=== PATIENT | female | born 1990 | race Caucasian/White ===

== ENCOUNTER 2017-10-27 12:41 | Emergency (ER) | payer OTHER ==
[2017-10-27] MEDS ORDERED: NA CHLORIDE 0.9% 1,000 ML ONE (13:44)
[2017-10-27 14:04] LABS: Absolute Monocytes 0.3 K/uL (0.1-1.3); Absolute Neutrophil 4.8 K/uL (1.8-8.0); Basophils % 0.8 % (0-1.3); Eosinophils % 1.3 % (0-4.4); Hematocrit 38.3 % (36.0-45.0); Lymphocytes % 27.2 % (15.3-44.8); MCH 29.3 pg (27.0-35.0); MPV 7.2 fL (7.6-11.3); Monocytes % 4.3 % (3.3-12.3); RBC Red Blood Cell Count 4.51 M/uL (3.86-4.86)
[2017-10-27 14:20] LABS: Urine Blood 2+ (NEG); Urine Glucose NEGATIVE (NEG); Urine Protein NEGATIVE (NEG); Urine Specific Gravity 1.015 (1.005-1.030)
[2017-10-27 14:24] LABS: BUN Blood Urea Nitrogen 10 mg/dL (7-18); Bicarbonate 26 mmol/L (21-32); Glucose Level 114 mg/dL (74-106); Potassium 3.7 mmol/L (3.5-5.1); Sodium Level 141 mmol/L (136-145)
--- NOTE | 2017-10-27 15:12 | EDPHYS ---
Physician Documentation [facility] Name: Merissa Moreira Age: 27 yrs Sex: Female : 1990 Arrival Date: 10/27/2017 Time: 12:45 Bed 19 Private MD: None, None ED Physician Jagdeep Cross HPI: 10/27 15:00 This 27 yrs old Female presents to ER via Ambulatory with complaints of pm1 Vaginal Bleeding. 15:00 The patient presents with vaginal bleeding that is heavy, with clots. Onset: The pm1 symptoms/episode began/occurred 4 day(s) ago. Modifying factors: The symptoms are alleviated by nothing, the symptoms are aggravated by nothing. Associated signs and symptoms: Pertinent negatives:. Severity of symptoms: At their worst the symptoms were moderate, 2 day(s) ago, in the emergency department the symptoms have improved, markedly. The patient has not experienced similar symptoms in the past. Patient with LEEP procedure 12 days ago. Patient with onset 4 days ago of vaginal bleeding that has gotten worse over the past two days. Clots present in bleeding for the past two days. No shortness of breath, chest pain, dizziness. Patient with irregular menses and possibly on her cycle now. 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 - Social history:: Smoking status: Patient/guardian denies using tobacco, Patient/guardian denies using alcohol. - Ebola Screening: : Patient negative for fever greater than or equal to 101.5 degrees Fahrenheit, and additional compatible Ebola Virus Disease symptoms Patient denies exposure to infectious person Patient denies travel to an Ebola-affected area in the 21 days before illness onset. ROS: 15:00 Positive for vaginal bleeding, Negative for urinary symptoms, burning with urination.pm1 15:00 Constitutional: Negative for fever, chills, and weight loss, Eyes: Negative for injury, pain, redness, and discharge, ENT: Negative for injury, pain, and discharge, Neck: Negative for injury, pain, and swelling, Cardiovascular: Negative for chest pain, palpitations, and edema, Respiratory: Negative for shortness of breath, cough, wheezing, and pleuritic chest pain, Abdomen/GI: Negative for abdominal pain, nausea, vomiting, diarrhea, and constipation, Back: Negative for injury and pain, MS/Extremity: Negative for injury and deformity, Skin: Negative for injury, rash, and discoloration, Neuro: Negative for headache, weakness, numbness, tingling, and seizure. Exam: 15:00 Constitutional: This is a well developed, well nourished patient who is awake, alert, pm1 and in no acute distress. Head/Face: Normocephalic, atraumatic. Eyes: Pupils equal round and reactive to light, extra-ocular motions intact. Lids and lashes normal. Conjunctiva and sclera are non-icteric and not injected. Cornea within normal limits. Periorbital areas with no swelling, redness, or edema. Neck: Trachea midline, no thyromegaly or masses palpated, and no cervical lymphadenopathy. Supple, full range of motion without nuchal rigidity, or vertebral point tenderness. No Meningismus. Chest/axilla: Normal chest wall appearance and motion. Nontender with no deformity. No lesions are appreciated. Cardiovascular: Regular rate and rhythm with a normal S1 and S2. No gallops, murmurs, or rubs. Normal PMI, no JVD. No pulse deficits. Respiratory: Lungs have equal breath sounds bilaterally, clear to auscultation and percussion. No rales, rhonchi or wheezes noted. No increased work of breathing, no retractions or nasal flaring. Abdomen/GI: Soft, non-tender, with normal bowel sounds. No distension or tympany. No guarding or rebound. No evidence of tenderness throughout. Back: No spinal tenderness. No costovertebral tenderness. Full range of motion. Skin: Warm, dry with normal turgor. Normal color with no rashes, no lesions, and no evidence of cellulitis. MS/ Extremity: Pulses equal, no cyanosis. Neurovascular intact. Full, normal range of motion. 15:04 : Pelvic Exam: External exam: is normal, Speculum exam: scant bleeding, After blood pm1 clot in vault removed. Scant bleeding present from os, Sports Commentator: DIRECTOR OF EXHIBITS student, Shelly. Vital Signs: 12:56 BP 128 / 83; Pulse 107; Resp 18; Temp 98.5(O); Pulse Ox 100% on R/A; Weight 68.04 kg; hj Height 5 ft. 5 in. (165.10 cm); Pain 1/10; 15:33 BP 133 / 97; Pulse 91; Resp 16; Pulse Ox 100% on R/A; mb3 12:56 Body Mass Index 24.96 (68.04 kg, 165.10 cm) hj MDM: 13:02 Patient medically screened. pm1 15:04 Data reviewed: vital signs. Data interpreted: Pulse oximetry: on room air is 100 %. pm1 Interpretation: normal. Counseling: I had a detailed discussion with the patient and/or guardian regarding: the historical points, exam findings, and any diagnostic results supporting the discharge/admit diagnosis, the need for outpatient follow up, an OB/Gyne specialist, to return to the emergency department if symptoms worsen or persist or if there are any questions or concerns that arise at home. 10/27 13:24 Order name: Basic Metabolic Panel; Complete Time: 14:34 pm10/27 13:24 Order name: CBC with Diff; Complete Time: 14:34 pm10/27 13:24 Order name: Type And Screen; Complete Time: 14:43 pm10/27 14:18 Order name: Urine Dipstick--Ancillary (enter results); Complete Time: 14:34 ag 10/27 14:18 Order name: Urine --Ancillary (enter results); Complete Time: 14:34 ag 10/27 14:44 Order name: ABO/RH no charge; Complete Time: 15:04 EDMS 10/27 13:24 Order name: Urine Test (obtain specimen); Complete Time: 13:56 pm10/27 13:24 Order name: IV Saline Lock; Complete Time: 13:56 pm10/27 13:24 Order name: Labs collected and sent; Complete Time: 13:56 pm10/27 13:24 Order name: NPO; Complete Time: 13:56 pm10/27 13:24 Order name: Urine Dipstick-Ancillary (obtain specimen); Complete Time: 13:56 pm10/27 13:24 Order name: Pelvic Exam Setup; Complete Time: 14:26 pm1 Administered Medications: 13:50 Drug: NS 0.9% 1000 ml Route: IV; Rate: 1000 ml; Site: right antecubital; ae1 15:31 Follow up: Response: No adverse reaction; IV Status: Completed infusion; IV Intake: mb3 1000ml Disposition: 17:36 Co-signature as Attending Physician, Jagdeep Cross MD. rn Disposition: 10/27/17 15:11 Discharged to Home. Impression: Other abnormal uterine and vaginal bleeding - .. - Condition is Stable. - Discharge Instructions: Abnormal Uterine Bleeding. - Medication Reconciliation Form, Thank You Letter form. - Follow up: Emergency Department; When: As needed; Reason: Worsening of condition. Follow up: Private Physician; When: 2 - 3 days; Reason: Recheck today's complaints, Continuance of care, Re-evaluation by your physician. - Problem is new. - Symptoms have improved. Signatures: Dispatcher [employer] EDMS Jagdeep Cross MD MD rn Joaquin, Henry RN Davis Arteaga NP DIRECTOR OF EXHIBITS pm1 Berlin Gómez RN RN ae1 Cas Campbell RN RN mb3 Corrections: (The following items were deleted from the chart) 15:33 15:11 10/27/2017 15:11 Discharged to Home. Impression: Other abnormal uterine and mb3 vaginal bleeding - .. Condition is Stable. Forms are Medication Reconciliation Form, Thank You Letter, Antibiotic Education, Prescription Opioid Use. Follow up: Emergency Department; When: As needed; Reason: Worsening of condition. Follow up: Private Physician; When: 2 - 3 days; Reason: Recheck today's complaints, Continuance of care, Re-evaluation by your physician. Problem is new. Symptoms have improved. pm1 22:31 15:04 : Pelvic Exam: External exam: is normal, Speculum exam: scant bleeding, After pm1 blood clot in vault removed. Scant bleeding present from os, Sports Commentator: DIRECTOR OF EXHIBITS student, pm1
--- NOTE | 2017-10-27 15:12 | ER ---
Nurse's Notes [facility] Name: Merissa Moreira Age: 27 yrs Sex: Female : 1990 Arrival Date: 10/27/2017 Time: 12:45 Bed 19 Private MD: None, None Diagnosis: Other abnormal uterine and vaginal bleeding-. Presentation: 10/27 12:53 Presenting complaint: Patient states: 12 days ago i had a LEEP procedure, i had vaginal hj bleed x 2 days now, reports bright red blood with chunks of blood; denies fever and chills; reports abd cramping; pain is 1/10; denies nausea and vomiting;. Transition of care: patient was not received from another setting of care. Onset of symptoms was October 27, 2017. Risk Assessment: Do you want to hurt yourself or someone else? Patient reports no desire to harm self or others. Initial Sepsis Screen: Does the patient meet any 2 criteria? No. Patient's initial sepsis screen is negative. Does the patient have a suspected source of infection? No. Patient's initial sepsis screen is negative. Care prior to arrival: None. 12:53 Method Of Arrival: Ambulatory 12:53 Acuity: JESSY 3 hj Triage Assessment: 12:56 General: Appears in no apparent distress. uncomfortable, Behavior is calm, cooperative, hj appropriate for age. Pain: Complains of pain in abdomen Pain currently is 1 out of 10 on a pain scale. : Reports vaginal bleeding that is bright red. 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 - Social history:: Smoking status: Patient/guardian denies using tobacco, Patient/guardian denies using alcohol. - Ebola Screening: : Patient negative for fever greater than or equal to 101.5 degrees Fahrenheit, and additional compatible Ebola Virus Disease symptoms Patient denies exposure to infectious person Patient denies travel to an Ebola-affected area in the 21 days before illness onset. Screenin:56 Abuse screen: Denies threats or abuse. Denies injuries from another. Nutritional hj screening: No deficits noted. Tuberculosis screening: No symptoms or risk factors identified. Fall Risk None identified. Assessment: 12:56 : hj 14:12 General: Appears in no apparent distress. comfortable, Behavior is calm, cooperative, mb3 appropriate for age. Pain: Denies pain. Neuro: No deficits noted. Cardiovascular: No deficits noted. Heart tones S1 S2 present Capillary refill < 3 seconds Patient's skin is warm and dry. Respiratory: No deficits noted. Airway is patent Respiratory effort is even, unlabored, Respiratory pattern is regular, symmetrical, Breath sounds are clear bilaterally. GI: No deficits noted. Abdomen is flat. Vital Signs: 12:56 BP 128 / 83; Pulse 107; Resp 18; Temp 98.5(O); Pulse Ox 100% on R/A; Weight 68.04 kg; hj Height 5 ft. 5 in. (165.10 cm); Pain 1/10; 15:33 BP 133 / 97; Pulse 91; Resp 16; Pulse Ox 100% on R/A; mb3 12:56 Body Mass Index 24.96 (68.04 kg, 165.10 cm) hj ED Course: 12:45 Patient arrived in ED. mr 12:46 None, None is Private Physician. mr 12:55 Triage completed. hj 12:56 Arm band placed on right wrist. hj 12:57 Patient has correct armband on for positive identification. Placed in gown. Bed in low hj position. Call light in reach. Side rails up X 1. 13:01 Davis Pineda NP is PHCP. pm1 13:01 Jagdeep Cross MD is Attending Physician. pm1 13:23 Cas Campbell, BETO is Primary Nurse. mb3 13:56 Inserted saline lock: 20 gauge in right antecubital area, using aseptic technique. ae1 Blood collected. 15:32 No provider procedures requiring assistance completed. IV discontinued, intact, mb3 bleeding controlled, No redness/swelling at site. Pressure dressing applied. Administered Medications: 13:50 Drug: NS 0.9% 1000 ml Route: IV; Rate: 1000 ml; Site: right antecubital; ae1 15:31 Follow up: Response: No adverse reaction; IV Status: Completed infusion; IV Intake: mb3 1000ml Intake: 15:31 IV: 1000ml; Total: 1000ml. mb3 Outcome: 15:11 Discharge ordered by . pm1 15:31 Discharged to home ambulatory. mb3 15:31 Condition: stable 15:31 Discharge instructions given to patient, Instructed on discharge instructions, follow up and referral plans. Demonstrated understanding of instructions, follow-up care. 15:33 Patient left the ED. mb3 Signatures: Zulema Pa mr Bud Soto RN RN hj Davis Pineda NP SURVEY STATISTICIAN pm1 [place] Gómez RN RN ae1 Cas Campbell RN RN mb3 Corrections: (The following items were deleted from the chart) 12:58 12:56 Pulse 107bpm; Resp 18bpm; Pulse Ox 100% RA; Temp 98.5F Oral; 68.04 kg; Height 5 hj ft. 5 in.; BMI: 24.9; Pain 1/10; hj
== END 2017-10-27 15:33 | disposition home or self-care (01) ==
LOC: ER 12:41
DX: N93.9 Abnormal uterine and vaginal bleeding, unspecified (principal)
CPT/HCPCS: 36415; 80048; 81003; 81025; 85025; 86850; 86900; 86901; 96360; 96361; 99283; J7030

== ENCOUNTER 2019-06-02 09:06 | Emergency (ER) | payer OTHER ==
--- OUTSIDE RECORDS SUMMARY | 2019-06-02 09:08 | XMS REPORT ---
:1990 [facility] Address [address] [place] [address] [address] [place] [address] Care Team Providers Name Role Phone Unavailable Unavailable Unavailable Payers Payer Name Policy Type Policy Number Effective Date Expiration Date Problems This patient has no known problems. Allergies, Adverse Reactions, Alerts Allergy Allergy Status Severity Reaction(s) Onset Inactive Treating Comments Name Type Date Date Clinician No Known DA Active U 2019-01 Allergies -16 00:00:0 0 No Known DA Active U 2017-11 Allergies -03 00:00:0 0 Medications This patient has no known medications. Results Test Description Test Time Test Comments Text Results Atomic Results Result Comments CBC W/AUTO DIFF 2019-02-03 08:44:00 Test Item Value Reference Range Comments WHITE BLOOD CELL (test code=WBC) 8.0 K/mm3 6.6-12.1 RED BLOOD CELL (test code=RBC) 3.34 M/mm3 3.45-5.01 HEMOGLOBIN (test code=HGB) 9.2 g/dL 10.7-13.9 HEMATOCRIT (test code=HCT) 29.0 % 32.1-42.1 MEAN CELL VOLUME (test code=MCV) 87 fL 84.1-94.8 MEAN CELL HGB (test code=MCH) 27.5 pg 27-35 MEAN CELL HGB CONCETRATION (test code=MCHC) 31.7 gm/dL 32.2-34.1 RED CELL DISTRIBUTION WIDTH (test code=RDW) 13.4 % 12.4-16.5 PLATELET COUNT (test code=PLT) 161 K/mm3 133-385 IMMATURE PLATELET FRACTION (test code=IPF) 0.0 % 0.0-10.8 MEAN PLATELET VOLUME (test code=MPV) 9.1 fl 9.1-12.7 NEUTROPHIL % (test code=NT%) 74.9 % 56.5-79.4 LYMPHOCYTE % (test code=LY%) 17.2 % 14.3-34.3 MONOCYTE % (test code=MO%) 5.0 % 5.1-10.4 EOSINOPHIL % (test code=EO%) 1.7 % 0.1-3.0 BASOPHIL % (test code=BA%) 0.1 % 0.1-1.0 NEUTROPHIL # (test code=NT#) 6.0 K/mm3 LYMPHOCYTE # (test code=LY#) 1.4 K/mm3 MONOCYTE # (test code=MO#) 0.4 K/mm3 EOSINOPHIL # (test code=EO#) 0.14 K/mm3 BASOPHIL # (test code=BA#) 0.0 K/mm3 RBC MORPHOLOGY REQUIRED (test code=RBCM) NORMAL NORMAL PLATELET MORPHOLOGY REQUIRED (test code=PLTMR) NORMAL NORMAL HEPATITIS C BY [id number] 14:09:00 Test Item Value Reference Range Comments HEPATITIS C BY PCR (test Negative Negative Negative: HCV RNA Not code=HEPCT) DetectedPerformed At: Lab[address] [id number] Sanjai MD Ph:[phone] HGB [id number] 05:27:00 Test Item Value Reference Range Comments HEMOGLOBIN (test code=HGB) 8.7 g/dL 10.7-13.9 RESULTS VERIFIED BY REPEAT ANALYSIS HEMATOCRIT (test code=HCT) 26.8 % 32.1-42.1 RESULTS VERIFIED BY REPEAT ANALYSIS CAPILLARY BLOOD [id number] 15:01:00 Test Item Value Reference Range Comments CAPILLARY BLOOD GAS PH (test code=PHC) 7.053 7.35-7.45 CAPILLARY BLOOD GAS PCO2 (test code=PCO2C) 60.1 mmHg CAPILLARY BLOOD GAS PO2 (test code=PO2C) 12.0 mmHg CBG HCO3 (test code=HCO3C) 16.4 meq/L CBG BASE EXCESS (test code=BEC) -14.7 CAPILLARY BLOOD GAS TYPE (test code=TYPEC) CBLA CAPILLARY BLOOD [id number] 14:58:00 Test Item Value Reference Range Comments CAPILLARY BLOOD GAS PH (test code=PHC) 7.095 7.35-7.45 CAPILLARY BLOOD GAS PCO2 (test code=PCO2C) 59.2 mmHg CAPILLARY BLOOD GAS PO2 (test code=PO2C) 11.2 mmHg CBG HCO3 (test code=HCO3C) 17.8 meq/L CBG BASE EXCESS (test code=BEC) -12.6 CAPILLARY BLOOD GAS TYPE (test code=TYPEC) CBLV AG HEPATITIS B [id number] 12:37:00 Test Item Value Reference Range Comments AG HEPATITIS B SURFACE (test code=HBSAG) NONREACTIVE NONREACTIVE CBC W/AUTO [id number] 11:14:00 Test Item Value Reference Range Comments WHITE BLOOD CELL (test code=WBC) 8.1 K/mm3 6.6-12.1 RED BLOOD CELL (test code=RBC) 4.27 M/mm3 3.45-5.01 HEMOGLOBIN (test code=HGB) 11.8 g/dL 10.7-13.9 HEMATOCRIT (test code=HCT) 36.0 % 32.1-42.1 MEAN CELL VOLUME (test code=MCV) 84 fL 84.1-94.8 MEAN CELL HGB (test code=MCH) 27.6 pg 27-35 MEAN CELL HGB CONCETRATION (test code=MCHC) 32.8 gm/dL 32.2-34.1 RED CELL DISTRIBUTION WIDTH (test code=RDW) 13.1 % 12.4-16.5 PLATELET COUNT (test code=PLT) 203 K/mm3 133-385 IMMATURE PLATELET FRACTION (test code=IPF) 0.0 % 0.0-10.8 MEAN PLATELET VOLUME (test code=MPV) 9.3 fl 9.1-12.7 NEUTROPHIL % (test code=NT%) 71.2 % 56.5-79.4 LYMPHOCYTE % (test code=LY%) 19.2 % 14.3-34.3 MONOCYTE % (test code=MO%) 6.3 % 5.1-10.4 EOSINOPHIL % (test code=EO%) 1.0 % 0.1-3.0 BASOPHIL % (test code=BA%) 0.2 % 0.1-1.0 NEUTROPHIL # (test code=NT#) 5.8 K/mm3 LYMPHOCYTE # (test code=LY#) 1.6 K/mm3 MONOCYTE # (test code=MO#) 0.5 K/mm3 EOSINOPHIL # (test code=EO#) 0.08 K/mm3 BASOPHIL # (test code=BA#) 0.0 K/mm3 RBC MORPHOLOGY REQUIRED (test code=RBCM) NORMAL NORMAL PLATELET MORPHOLOGY REQUIRED (test code=PLTMR) NORMAL NORMAL CERVIX [id number] 17:11:00 RUN DATE: 11/23/17 [facility] PAGE 1 RUN TIME: 1300 Specimen Inquiry RUN USER: INTERFACE PATIENT: GEETA LUTZ LOC: [facility] U #: [id number] AGE/SX: 27/F ROOM: RE11/19/17[facility] DR: Dex Moore MD : 88 BED: DIS: STATUS: [facility] [place]: SPEC # : [id number] RECD: 11/19/17 STATUS: HERB JONES #: [id number] ABIMBOLA: 11/19/17- SUBM DR: Dex Moore MD ENTERED: 11/19/17 SP TYPE: CERVCON OTHR DR: ORDERED: LEVEL V SURGICA, FROZEN SECTION, FROZEN ADD/ 2 CODES: [id number] - UTERINE CERVIX PROCEDURES: LEVEL V SURGICA (Incomplete) FROZEN SECTION (Incomplete) FROZEN ADD ( Incomplete) TISSUES: UTERINE CERVIX, NOS - CERVICAL CONE CLINICAL HISTORY 27 year old, 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 ADDENDUM PENDING, SPECIMEN IS BEING SENT TO [facility] code 1 CPT code(s): 69629, 07957, 22694 x2 cds/wpd 11/22/17 @ 1707 GROSS DESCRIPTION The specimen received without fixative in a container, labeled with the patient's name is designated "cervical cone for margins". The specimen consists of an unoriented 1.7 x 1.5cm montes cervical mucosa with underlying tissue measuring up to 0.7 cm. The margin is inked black.It is sectioned and submitted in toto in FS1 - FS3. hz/ wpd 11/19/17 @ 0950 CONTINUED ON NEXT PAGE RUN DATE: 11/23/17 [facility] PAGE 2 RUN TIME: 1300 Specimen Inquiry RUN USER: INTERFACE SPEC #: [id number] PATIENT: GEETA LUTZ #[id number] (Continued) MICROSCOPIC DESCRIPTION Sections of the cervical biopsy do not show evidence of a high-grade squamous intraepithelial lesion or malignancy. COMMENT: Because of the patient's history, immunostain for p16 will be performed on blocks FS1 - FS3. cds/wpd 11/22/17 @ 1706 Signed Srini Mtz 11/22/17 1711 END OF REPORT CERVIX [id number] 17:11:00 RUN DATE: 11/25/17 [facility] PAGE 1 RUN TIME: 1803 Specimen Inquiry RUN USER: INTERFACE PATIENT: GEETA LUTZ LOC: [facility] U #: [id number] AGE/SX: 27/F ROOM: RE11/19/17REG DR: Dex Moore MD : 88 BED: DIS: STATUS: [facility] TLOC: SPEC #: [id number] RECD: 11/19/17 STATUS: HERB JONES #: [id number] ABIMBOLA: 11/19/17- SUBM DR: Dex Moore MD ENTERED: 11/19/17 SP TYPE: CERVCON OTHR DR: ORDERED: LEVEL V SURGICA, FROZEN SECTION, FROZEN ADD/2 ADDENDUM FINDINGS Addendum #1 Entered: The following technical components were performed at [facility], [address] [place] [address]. The interpretation is provided by [facility], [address] [place] [id number]. Controls received from [employer] stained appropriately. INTERPRETATION: Immunostains for p16 are negative for evidence of high grade dysplasia. There is no change in the diagnosis for this case. 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 ADDENDUM PENDING, SPECIMEN IS BEING SENT TO [facility] Tissue code 1 CPT code(s): 36558, 05444, 80393 x2 cds/wpd 11/22/17 @ 1704 GROSS DESCRIPTION The specimen received without fixative in a container,labeled with the patient's name is designated "cervical cone for margins". The specimen consists of an unoriented 1.7 x 1.5 cm montes cervical mucosa with underlying tissue measuring up to 0.7 cm.The margin is inked black. It is sectioned and submitted in toto in FS1 - FS3. [employer]/wpd 11/19/17 @ 0988 MICROSCOPIC DESCRIPTION Sections of the cervical biopsy do not show evidence of a high-grade squamous intraepithelial lesion or malignancy. COMMENT: Because of the patient's history, immunostain for p16 will be performed on blocks FS1 - FS3. cds/wpd 11/22/17 @ 1707 Signed Srini Mtz 11/22/17 1711 END OF REPORT
[2019-06-02] MEDS ORDERED: NA CHLORIDE 0.9% 500 ML ONE (09:31)
--- NOTE | 2019-06-02 09:54 | RAD REPORT ---
EXAM DESCRIPTION: CT - Head Brain Wo Cont - 06/02/2019 9:47 am CLINICAL HISTORY: Dizziness;Headache, blurred vision COMPARISON: No comparisons TECHNIQUE: Axial 5 mm thick images of the head were obtained without IV contrast. All CT scans are performed using dose optimization technique as appropriate and may include automated exposure control or mA/KV adjustment according to patient size. FINDINGS: No intracranial hemorrhage, mass, edema or shift of mid-line structures. No acute infarcti on changes seen. No abnormal extra-axial fluid collections. Ventricles are normal. Mastoid air cells and visualized portions of the paranasal sinuses are clear. No acute bony findings. IMPRESSION: Negative non-contrast CT head examination.
[2019-06-02 09:55] LABS: Absolute Lymphocytes (CBC) 1.9 K/uL (0.7-4.9); Basophils % 0.5 % (0-1.3); Hematocrit 41.6 % (36.0-45.0); Lymphocytes % 27.3 % (15.3-44.8); MPV 7.4 fL (7.6-11.3); RBC Red Blood Cell Count 5.05 M/uL (3.86-4.86)
[2019-06-02 10:10] LABS: ALT/SGPT 44 U/L (12-78); AST/SGOT 17 U/L (15-37); Albumin 4.1 g/dL (3.4-5.0); Alkaline Phosphatase 99 U/L (45-117); BUN Blood Urea Nitrogen 11 mg/dL (7-18); Bicarbonate 24 mmol/L (21-32); Bilirubin Direct 0.2 mg/dL (0-0.2); Bilirubin Total 0.9 mg/dL (0.2-1.0); Glucose Level 83 mg/dL (74-106); Magnesium 2.1 mg/dL (1.8-2.4); Potassium 4.1 mmol/L (3.5-5.1); Protein, Total 7.5 g/dL (6.4-8.2); Sodium Level 140 mmol/L (136-145); Troponin (Emerg Dept Use Only) < 0.02 ng/mL (0.0-0.045)
[2019-06-02] MEDS ORDERED: MECLIZINE HCL 12.5 MG TAB ONE (10:20)
[2019-06-02 10:30] LABS: Urine Blood NEGATIVE (NEG); Urine Glucose NEGATIVE (NEG); Urine Protein NEGATIVE (NEG); Urine Specific Gravity 1.025 (1.005-1.030)
--- NOTE | 2019-06-02 10:33 | RAD REPORT ---
EXAM DESCRIPTION: [place] Single View06/02/2019 10:13 am CLINICAL HISTORY: cough COMPARISON: none FINDINGS: The lungs appear clear of acute infiltrate. The heart is normal size IMPRESSION: No acute abnormalities displayed
--- NOTE | 2019-06-02 10:35 | ER ---
Nurse's Notes [facility] Name: Merissa Moreira Age: 29 yrs Sex: Female : 1990 Arrival Date: 06/02/2019 Time: 09:07 Bed 14 Private MD: Diagnosis: Essential (primary) hypertension;Dizziness and giddiness Presentation: 06/02 09:12 Presenting complaint: Patient states: Headache with blurred vision that is intermittent sg that began yesterday morning, reports worsening today while at work, also noticed tingling in the right fingertips, denies n/v/d/fever. Transition of care: patient was not received from another setting of care. Onset of symptoms was June 02, 2019. Risk Assessment: Do you want to hurt yourself or someone else? Patient reports no desire to harm self or others. Initial Sepsis Screen: Does the patient meet any 2 criteria? No. Patient's initial sepsis screen is negative. Does the patient have a suspected source of infection? No. Patient's initial sepsis screen is negative. Care prior to arrival: None. 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 - Coronavirus screen:: The patient has NOT traveled to [place] in the past 14 days. The patient has NOT had contact with known/suspected case of Coronavirus?. - Social history:: Smoking status: . - Family history:: not pertinent. - Ebola Screening: : Patient negative for fever greater than or equal to 101.5 degrees Fahrenheit, and additional compatible Ebola Virus Disease symptoms Patient denies exposure to infectious person Patient denies travel to an Ebola-affected area in the 21 days before illness onset No symptoms or risks identified at this time. Screenin:21 Abuse screen: Denies threats or abuse. Nutritional screening: No deficits noted. tw2 Tuberculosis screening: No symptoms or risk factors identified. Fall Risk None identified. Assessment: 09:12 Reassessment: provider at room at this time. tw2 09:22 General: Appears in no apparent distress. well groomed, Behavior is calm, cooperative, tw2 appropriate for age. Pain: Complains of pain in forehead. Neuro: Level of Consciousness is awake, alert, obeys commands, Oriented to person, place, time, situation, Reports headache numbness in palmar aspect of distal phalanx of right middle finger, palmar aspect of middle phalanx of right middle finger, palmar aspect of proximal phalanx of right middle finger, palmar aspect of distal phalanx of right index finger, palmar aspect of middle phalanx of right index finger and palmar aspect of proxima; phalanx of right index finger. Cardiovascular: Heart tones S1 S2 Patient's skin is warm and dry. Respiratory: Airway is patent Respiratory effort is even, unlabored, Respiratory pattern is regular, symmetrical, Breath sounds are clear bilaterally. GI: No signs and/or symptoms were reported involving the gastrointestinal system. Abdomen is flat, Bowel sounds present X 4 quads. : No signs and/or symptoms were reported regarding the genitourinary system. EENT: Reports pain in left ear. Derm: No signs and/or symptoms reported regarding the dermatologic system. Musculoskeletal: Range of motion: intact in all extremities. 10:03 Reassessment: Patient appears in no apparent distress at this time. Patient and/or tw2 family updated on plan of care and expected duration. Pain level reassessed. Patient is alert, oriented x 3, equal unlabored respirations, skin warm/dry/pink. 11:20 Reassessment: Patient appears in no apparent distress at this time. Patient and/or tw2 family updated on plan of care and expected duration. Pain level reassessed. Patient is alert, oriented x 3, equal unlabored respirations, skin warm/dry/pink. Patient states feeling better. Vital Signs: 09:12 BP 128 / 105; Pulse 92; Resp 17; Pulse Ox 100% on R/A; tw2 09:13 Weight 69.85 kg; Height 5 ft. 9 in. (175.26 cm); sg 10:03 BP 112 / 91; Pulse 81; Resp 17; Temp 98(TE); Pulse Ox 100% on R/A; tw2 11:20 BP 118 / 89; Pulse 62; Resp 17; Pulse Ox 100% on R/A; tw2 09:13 Body Mass Index 22.74 (69.85 kg, 175.26 cm) NIH Stroke Scale Scores: NIHSS Score: 0 [facility] ED Course: :07 Patient arrived in ED. rg4 09:08 Román Orozco MD is Attending Physician. alise 09:09 Bed in low position. Call light in reach. Adult w/ patient. tw2 09:10 Roya Gama, BETO is Primary Nurse. tw2 09:13 Triage completed. sg 09:13 Arm band placed on. sg 09:50 Inserted saline lock: 22 gauge in right antecubital area, using aseptic technique. tw2 Blood collected. Missed attempt(s): 22 gauge in right antecubital area. Bleeding controlled, band aid applied, catheter tip intact. 10:01 EKG done, by soils technician. reviewed by Román Orozco MD. at1 10:34 Beltran Mobley MD is Referral Physician. alise 11:28 No provider procedures requiring assistance completed. tw2 Administered Medications: :50 Drug: NS 0.9% 500 ml Route: IV; Rate: bolus; Site: right antecubital; tw2 11:00 Follow up: Response: No adverse reaction; IV Status: Completed infusion; IV Intake: tw2 500ml 10:21 Drug: Meclizine 25 mg Route: PO; tw2 11:00 Follow up: Response: No adverse reaction; No change in condition tw2 11:20 Not Given (Patient Refused): Aspirin 81 mg PO once tw2 11:20 Not Given (Patient Refused): Lisinopril 5 mg PO once tw2 Intake: 11:00 IV: 500ml; Total: 500ml. tw2 Outcome: 10:34 Discharge ordered by . alise 11:28 Patient left the ED. tw2 11:28 Discharged to home ambulatory, with significant other. tw2 11:28 Condition: stable 11:28 Discharge instructions given to patient, significant other, Instructed on discharge instructions, follow up and referral plans. medication usage, Demonstrated understanding of instructions, follow-up care, medications, Prescriptions given X 2. NIH Stroke Scale - NIH Stroke Score Date: 06/02/2019 Time: :24 Total Score = 0 1a. Level of Consciousness (LOC) - 0(Alert) 1b. Level of Consciousness (LOC) (Year \T\ Age) - 0(Both) 1c. LOC Commands (Open \T\ Closes Eyes/Senior Water Resources Engineer) - 0(Both) 2. Best Gaze (Lateral Gaze Paresis) - 0(Normal) 3. Visual Field Loss - 0(No visual loss) 4. Facial Palsy - 0(Normal) 5a. Left Arm: Motor (10-second hold) - 0(No drift) 5b. Right Arm: Motor (10-second hold) - 0(No drift) 6a. Left Leg: Motor (5-second hold - always test supine) - 0(No drift) 6b. Right Leg: Motor (5-second hold - always test supine) - 0(No drift) 7. Limb Ataxia (finger/nose \T\ heel/laguerre - test with eyes open) - 0(Absent) 8. Sensory Loss (pinprick arms/legs/face) - 0(Normal) 9. Best Language: Aphasia (description/naming/reading) - 0(No aphasia) 10. Dysarthria (speech clarity - read or repeat words) - 0(Normal) 11. Extinction and Inattention (visual/tactile/auditory/spatial/personal) - 0(No abnormality) Initials: alise Signatures: Bear Salguero RN RN Román Wise MD MD cha Gonzales, Amanda, apparatus cleaner EKG Tat1 Roya Gama RN RN tw2 Vivian [email or web address] Corrections: (The following items were deleted from the chart) 09:25 09:12 Home Meds: control pills; tw
--- NOTE | 2019-06-02 10:37 | EDPHYS ---
Physician Documentation [facility] Name: Merissa Moreira Age: 29 yrs Sex: Female : 1990 Arrival Date: 06/02/2019 Time: 09:07 Bed 14 Private MD: RYLEE Physician Román Orozco HPI: 06/02 09:24 This 29 yrs old Female presents to ER via Ambulatory with complaints of alise Headache, Blurred Vision, Numbness Of Hand. 09:24 The patient complains of pain to the forehead, right eye, left eye, left frontal area, alise left side of forehead, right frontal area and right side of forehead. The patient describes the headache as aching, a pressure. Onset: The symptoms/episode began/occurred 2 day(s) ago. Associated signs and symptoms: The patient has no apparent associated signs or symptoms. Severity of symptoms: At its worst the pain was mild, earlier today. Headache History: Denies prior headaches. The symptoms are alleviated by nothing. the symptoms are aggravated by nothing. The patient has not experienced similar symptoms in the past. 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 - Coronavirus screen:: The patient has NOT traveled to [place] in the past 14 days. The patient has NOT had contact with known/suspected case of Coronavirus?. - Social history:: Smoking status: . - Family history:: not pertinent. - Ebola Screening: : Patient negative for fever greater than or equal to 101.5 degrees Fahrenheit, and additional compatible Ebola Virus Disease symptoms Patient denies exposure to infectious person Patient denies travel to an Ebola-affected area in the 21 days before illness onset No symptoms or risks identified at this time. ROS: 09:24 Constitutional: Negative for fever, chills, and weight loss, Eyes: Negative for injury, alise pain, redness, and discharge, Neck: Negative for injury, pain, and swelling, Cardiovascular: Negative for chest pain, palpitations, and edema, Respiratory: Negative for shortness of breath, cough, wheezing, and pleuritic chest pain, Abdomen/GI: Negative for abdominal pain, nausea, vomiting, diarrhea, and constipation, Back: Negative for injury and pain, : Negative for injury, bleeding, discharge, and swelling, MS/Extremity: Negative for injury and deformity, Skin: Negative for injury, rash, and discoloration, Psych: Negative for depression, anxiety, suicide ideation, homicidal ideation, and hallucinations, Allergy/Immunology: Negative for hives, rash, and allergies, Endocrine: Negative for neck swelling, polydipsia, polyuria, polyphagia, and marked weight changes, Hematologic/Lymphatic: Negative for swollen nodes, abnormal bleeding, and unusual bruising. 09:24 ENT: Positive for ear pain, tinnitus. 09:24 Neuro: Positive for numbness, of the right hand. Exam: 09:24 Constitutional: This is a well developed, well nourished patient who is awake, alert, alise and in no acute distress. Head/Face: Normocephalic, atraumatic. Eyes: Pupils equal round and reactive to light, extra-ocular motions intact. Lids and lashes normal. Conjunctiva and sclera are non-icteric and not injected. Cornea within normal limits. Periorbital areas with no swelling, redness, or edema. ENT: Nares patent. No nasal discharge, no septal abnormalities noted. Tympanic membranes are normal and external auditory canals are clear. Oropharynx with no redness, swelling, or masses, exudates, or evidence of obstruction, uvula midline. Mucous membranes moist. Neck: Trachea midline, no thyromegaly or masses palpated, and no cervical lymphadenopathy. Supple, full range of motion without nuchal rigidity, or vertebral point tenderness. No Meningismus. Chest/axilla: Normal chest wall appearance and motion. Nontender with no deformity. No lesions are appreciated. Cardiovascular: Regular rate and rhythm with a normal S1 and S2. No gallops, murmurs, or rubs. Normal PMI, no JVD. No pulse deficits. Respiratory: Lungs have equal breath sounds bilaterally, clear to auscultation and percussion. No rales, rhonchi or wheezes noted. No increased work of breathing, no retractions or nasal flaring. Abdomen/GI: Soft, non-tender, with normal bowel sounds. No distension or tympany. No guarding or rebound. No evidence of tenderness throughout. Back: No spinal tenderness. No costovertebral tenderness. Full range of motion. Skin: Warm, dry with normal turgor. Normal color with no rashes, no lesions, and no evidence of cellulitis. MS/ Extremity: Pulses equal, no cyanosis. Neurovascular intact. Full, normal range of motion. Neuro: Awake and alert, GCS 15, oriented to person, place, time, and situation. Cranial nerves II-XII grossly intact. Motor strength 5/5 in all extremities. Sensory grossly intact. Cerebellar exam normal. Normal gait. Psych: Awake, alert, with orientation to person, place and time. Behavior, mood, and affect are within normal limits. 09:24 Neuro: Orientation: is normal, appropriate for stated age, no acute changes, Mentation: is normal, appropriate for stated age, no acute changes, Memory: is normal, appropriate for stated age, no acute changes, Cranial nerves: grossly normal, is grossly normal based on the patient's age, no acute changes, Cerebellar function: is grossly normal, Motor: is normal, is grossly normal based on the patient's age, no acute changes, Gait: is steady, appropriate for age, Deep tendon reflexes are 2+ (normal) in the bilateral brachioradialis, bicep, tricep and patellar and Achilles tendons, Babinski testing is normal. Vital Signs: 09:12 BP 128 / 105; Pulse 92; Resp 17; Pulse Ox 100% on R/A; tw2 09:13 Weight 69.85 kg; Height 5 ft. 9 in. (175.26 cm); sg 10:03 BP 112 / 91; Pulse 81; Resp 17; Temp 98(TE); Pulse Ox 100% on R/A; tw2 11:20 BP 118 / 89; Pulse 62; Resp 17; Pulse Ox 100% on R/A; tw2 09:13 Body Mass Index 22.74 (69.85 kg, 175.26 cm) NIH Stroke Scale Scores: 09:24 NIHSS Score: 0 alise MDM: 09:08 Patient medically screened. [facility] 09:27 Data reviewed: vital signs, nurses notes, lab test result(s), EKG, radiologic studies, [facility] CT scan, plain films. 06/02 09:24 Order name: Basic Metabolic Panel [facility] 06/02 09:24 Order name: CBC with Diff [facility] 06/02 09:24 Order name: LFT's [facility] 06/02 09:24 Order name: Magnesium [facility] 06/02 09:24 Order name: Troponin (emerg Dept Use Only) [facility] 06/02 09:55 Order name: Urine Dipstick--Ancillary (enter results) [facility] 06/02 09:55 Order name: Urine --Ancillary (enter results) [facility] 06/02 09:56 Order name: CBC with Automated Diff; Complete Time: 10:10 EDMA 06/02 10:11 Order name: Basic Metabolic Panel; Complete Time: 10:33 EDMA 06/02 10:11 Order name: Liver (Hepatic) Function; Complete Time: 10:33 EDMA 06/02 10:12 Order name: Troponin (Emerg Dept Use Only); Complete Time: 10:33 EDMA 06/02 10:12 Order name: Magnesium; Complete Time: 10:33 EDMA 06/02 10:33 Order name: Urine --Ancillary; Complete Time: 10:34 EDMA 06/02 10:34 Order name: Urine Dipstick-Ancillary [facility] 06/02 09:24 Order name: XRAY Chest (1 view) [facility] 06/02 09:24 Order name: EKG; Complete Time: 09:25 [facility] 06/02 09:24 Order name: Cardiac monitoring; Complete Time: 09:26 [facility] 06/02 09:24 Order name: EKG - Nurse/Tech; Complete Time: 10:02 [facility] 06/02 09:24 Order name: IV Saline Lock; Complete Time: 10:02 [facility] 06/02 09:24 Order name: Labs collected and sent; Complete Time: 10:02 [facility] 06/02 09:24 Order name: O2 Per Protocol; Complete Time: 09:26 [facility] 06/02 09:24 Order name: O2 Sat Monitoring; Complete Time: 09:26 [facility] 06/02 09:24 Order name: CT Head Brain wo Cont [facility] 06/02 10:11 Order name: CT; Complete Time: 10:33 EDMA 06/02 10:52 Order name: RAD EDMS Administered Medications: 09:50 Drug: NS 0.9% 500 ml Route: IV; Rate: bolus; Site: right antecubital; tw2 11:00 Follow up: Response: No adverse reaction; IV Status: Completed infusion; IV Intake: tw2 500ml 10:21 Drug: Meclizine 25 mg Route: PO; tw2 11:00 Follow up: Response: No adverse reaction; No change in condition tw2 11:20 Not Given (Patient Refused): Aspirin 81 mg PO once tw2 11:20 Not Given (Patient Refused): Lisinopril 5 mg PO once tw2 Disposition: 06/02/19 10:34 Discharged to Home. Impression: Essential (primary) hypertension, Dizziness and giddiness. - Condition is Stable. - Discharge Instructions: Dizziness, Hypertension, Hypertension, [id number], Aspirin and Your Heart. - Prescriptions for Meclizine 25 mg Oral Tablet - take 1 tablet by ORAL route every 8 hours As needed; 30 tablet. Lisinopril 5 mg Oral Tablet - take 1 tablet by ORAL route once daily; 20 tablet. - Medication Reconciliation Form, Thank You Letter, Antibiotic Education, Prescription Opioid Use, Work release form form. - Follow up: Private Physician; When: 2 - 3 days; Reason: Recheck today's complaints, Continuance of care, Re-evaluation by your physician. Follow up: Beltran Mobley; When: 2 - 3 days; Reason: Recheck today's complaints, Re-evaluation by your physician. - Problem is new. - Symptoms have improved. NIH Stroke Scale - NIH Stroke Score Date: 06/02/2019 Time: 09:24 Total Score = 0 1a. Level of Consciousness (LOC) - 0(Alert) 1b. Level of Consciousness (LOC) (Year \T\ Age) - 0(Both) 1c. LOC Commands (Open \T\ Closes Eyes/Crayon Sorting Machine Feeder) - 0(Both) 2. Best Gaze (Lateral Gaze Paresis) - 0(Normal) 3. Visual Field Loss - 0(No visual loss) 4. Facial Palsy - 0(Normal) 5a. Left Arm: Motor (10-second hold) - 0(No drift) 5b. Right Arm: Motor (10-second hold) - 0(No drift) 6a. Left Leg: Motor (5-second hold - always test supine) - 0(No drift) 6b. Right Leg: Motor (5-second hold - always test supine) - 0(No drift) 7. Limb Ataxia (finger/nose \T\ heel/laguerre - test with eyes open) - 0(Absent) 8. Sensory Loss (pinprick arms/legs/face) - 0(Normal) 9. Best Language: Aphasia (description/naming/reading) - 0(No aphasia) 10. Dysarthria (speech clarity - read or repeat words) - 0(Normal) 11. Extinction and Inattention (visual/tactile/auditory/spatial/personal) - 0(No abnormality) Initials: alise Signatures: Dispatcher [employer] EDMS Bear Salguero RN RN sg Anderson, Corey, MD MD cha Wise, Tara, RN RN tw2 Corrections: (The following items were deleted from the chart) 09:25 09:12 Home Meds: control pills; tw2 tw2 11:28 10:34 06/02/2019 10:34 Discharged to Home. Impression: Essential (primary) tw2 hypertension; Dizziness and giddiness. Condition is Stable. Discharge Instructions: Dizziness, Hypertension, Hypertension, [id number], Aspirin and Your Heart. Prescriptions for Meclizine 25 mg Oral Tablet - take 1 tablet by ORAL route every 8 hours As needed; 30 tablet, Lisinopril 5 mg Oral Tablet - take 1 tablet by ORAL route once daily; 20 tablet. and Forms are Work release form, Medication Reconciliation Form, Thank You Letter, Antibiotic Education, Prescription Opioid Use. Follow up: Private Physician; When: 2 - 3 days; Reason: Recheck today's complaints, Continuance of care, Re-evaluation by your physician. Follow up: Beltran Mobley; When: 2 - 3 days; Reason: Recheck today's complaints, Re-evaluation by your physician. Problem is new. Symptoms have improved. alise
[2019-06-02] MEDS ORDERED: lisinopriL 5 MG TAB ONE (11:00)
[2019-06-02] MEDS ORDERED: ASPIRIN EC 81 MG TAB PO ONE (11:00)
--- NOTE | 2019-06-02 15:01 | EKG ---
Test Date: 2019-06-02 Test Time: 09:56:49 Learning Disabilities Resource Teacher: ZAIN MEASUREMENT RESULTS: Intervals: Rate: 78 IN: 138 QRSD: 78 QT: 350 QTc: 399 Hodgen: P: 40 IN: 138 QRS: 82 T: 57 INTERPRETIVE STATEMENTS: Normal sinus rhythm Normal ECG No previous ECG available for comparison Electronically Signed On 06-02-19 15:00:50 TEST DRIVER by Joe Coleman
[2019-06-02 19:46] VITALS: O2SAT 100
[2019-06-02 19:48] VITALS: BP 112/91; TEMP 98
== END 2019-06-02 11:28 | disposition home or self-care (01) ==
LOC: ER 09:06
DX: I10 Essential (primary) hypertension (principal); R42 Dizziness and giddiness
CPT/HCPCS: 93005; 85025; 80048; 36415; 83735; 81025; 80076; 81003; 84484; 70450; 71045; 96360; 99284; J8597; J7040